=== PATIENT | female | born 1980 | race Caucasian/White ===

== ENCOUNTER 2020-03-13 18:25 | Outpatient (CLI) | payer BC, OTHER, SELFPAY ==
[2020-03-13 19:09] LABS: NT Pro B Type Natriuretic Pept 36 pg/mL (0-125)
== END 2020-03-13 18:26 | disposition home or self-care (01) ==
PROVIDERS: Visit Provider Nurse Practitioner Family
DX: R60.9 Edema, unspecified (principal)
CPT/HCPCS: 83880

== ENCOUNTER 2020-11-10 12:59 | Emergency (ER) | payer SELFPAY ==
[2020-11-10] VITALS (12 sets, daily range): BP systolic 140–160; BP diastolic 51–92; PULSE 95–112; RESP 14–20; TEMP 36.2–37.1; O2SAT 96–100; BMI 27.6
--- NOTE | 2020-11-10 13:37 | ED_ITS ---
HPI - Female Genitourinary General: Chief complaint: Vaginal Bleeding Stated complaint: CONSISTANT BLEEDING 2 MONTHS Time Seen by Provider: 11/10/20 13:37 History of Present Illness: Associated symptoms: Deny abdominal pain, headache(s) or nausea Review of Systems Const: Denies: fever(s), chills or fatigue Eyes: Denies: change in vision or eye discomfort ENMT: Denies: throat pain, odynophagia, nasal discharge or nasal congestion Card: Denies: chest pain, palpitations, edema, swelling of feet/ankles, dyspnea on exertion or orthopnea Resp: Denies: dyspnea, productive cough or non-productive cough GI: Denies: abdominal pain, nausea, vomiting, diarrhea, constipation or he matochezia : Denies: flank pain, dysuria or hematuria Musc: Denies: neck pain, back pain or extremity swelling Skin/Breast: Denies: rash or new lesions Neuro: Denies: headache(s), numbness in extremities or weakness in extremities PFSH ED PFSH: Medical History Elevated BP without diagnosis of hypertension Performance anxiety Sebaceous cyst Family History Other Hypertension Thyroid disease Social History Smoking and tobacco status: current every day smoker cigarettes Packs smoked per day: 0.5 Second hand smoke exposure: Yes Alcohol intake: never Current occupational status: employed Physical Exam Const: COMMON NORMALS: patient oriented x3 HENMT: COMMON NORMALS: normocephalic HEAD & SCALP: normocephalic MOUTH: Normal oral and palatal mucosa present THROAT: posterior oropharynx normal and uvula midline Neck/C-Spine: COMMON NORMALS: supple GENERAL: Yes normal visual inspection Resp: COMMON NORMALS: normal respiratory effort, No retractions, No use of accessory muscles and clear to auscultation bilaterally AUSCULTATION: clear to auscultation bilaterally Cardio: COMMON NORMALS: regular rate, regular rhythm, S1 normal heart sound present, S2 normal heart sound present, No gallops present (Cardio), No clicks present (Cardio), No murmurs present (Cardio) and Peripheral pulses 2+ throughout RATE: regular rate RHYTHM: regular rhythm HEART SOUNDS: S1 normal heart sound present and S2 normal heart sound present PERIPHERAL PULSES: Peripheral pulses 2+ throughout GI: COMMON NORMALS: Normal to inspection, nondistended, normoactive bowel sounds present, Soft to palpation, non-tender and no masses PALPATION: Yes Soft to palpation : COMMON NORMALS: Yes no CVA tenderness BLADDER/KIDNEY EXAM: Yes no CVA tenderness Back/Pelvis: COMMON NORMALS: no CVA tenderness Neuro: COMMON NORMALS: patient oriented x3 and moves all extremities Course Vital Signs: Vital signs: Vital Signs Temperature 97.1 F L 11/10/20 13:28 Pulse Rate 112 H 11/10/20 13:28 Respiratory Rate 14 11/10/20 13:28 Blood Pressure 159/86 11/10/20 13:28 Pulse Oximetry 100 11/10/20 13:28 Discharge Plan Discharge Condition: Good Prescriptions: No Action clindamycin HCl 300 mg capsule 300 mg PO BID 7 Days Qty: 14 RF: 0 Coding Level of Care Code ED [employer] Worker for Abigail Mercedes
--- NOTE | 2020-11-10 15:38 | PC.NURSE ---
Stated started bleeding since 09/20/20, uses 6-8 pads a day. Now, having SOB, weakness, and tired.
--- NOTE | 2020-11-10 16:08 | W.ED.FEMALGU ---
HPI - Female Genitourinary General: Chief complaint: Vaginal Bleeding Stated complaint: CONSISTANT BLEEDING 2 MONTHS Time Seen by Provider: 11/10/20 13:37 Source: patient Mode of arrival: ambulatory Limitations: no limitations History of Present Illness: HPI Narrative: 40-year-old female presenting with dizziness, shortness of breath, fatigue, and abnormal vaginal bleeding for the last 2 months. States that she frequently has passed large clots, bleeding intensity waxes and wanes throughout the day, but she has been bleeding every single day for the last 2 months. Denies any pain, abnormal discharge. No abdominal swelling or bloating. Her last Pap smear was over 10 years ago. No other abnormal bleeding or bruising. She is not on any blood thinners. No history of any bleeding disorders. She complains of headaches, cold intolerance, fatigue, dyspnea on exertion, and frequent dizziness, all with gradual onset over the past 2 months. No dysuria. Associated symptoms: Reports headache(s) Review of Systems General: Reports: 10 or more systems reviewed and unremarkable except in HPI and below Const: Reports: chills, body aches, fatigue, malaise and daytime sleepiness; Denies: fever(s), night sweats or diaphoresis Eyes: Denies: blurry vision, blind spots, eye discharge or eye redness ENMT: Denies: odynophagia, nasal congestion or nasal obstruction Card: Reports: palpitations, edema, swelling of feet/ankles, lightheadedness, pre-syncope, dyspnea on exertion and leg pain with exertion; Denies: irregular heart rhythm : Denies: flank pain, difficulty voiding, dysuria, urinary frequency or urinary urgency Musc: Reports: extremity swelling Skin/Breast: Denies: rash, pruritus, erythema, photosensitivity or skin pain Neuro: Reports: headache(s), weakness in extremities and dizziness Endo: Reports: cold intolerance; Denies: polyuria, polydipsia or tired all the time Glenn/Lymph: Denies: easy bruising, easy bleeding, petechiae, purpura or enlarged lymph nodes PFS ED PFSH: Medical History (Updated 11/10/20 @ 18:37 by Manisha Padilla MD) Elevated BP without diagnosis of hypertension Performance anxiety Sebaceous cyst Family History Other Hypertension Thyroid disease Social History Smoking and tobacco status: current every day smoker cigarettes Packs smoked per day: 0.5 Second hand smoke exposure: Yes Alcohol intake: never Current occupational status: employed Physical Exam Const: COMMON NORMALS: no acute distress, patient oriented x3, alert and well nourished GENERAL APPEARANCE: cooperative, comfortable and anxious; not in distress, not lethargic and not ill appearing ORIENTATION/CONSCIOUSNESS: not lethargic HENMT: COMMON NORMALS: normocephalic and atraumatic HEAD & SCALP: normal to inspection, normocephalic and atraumatic FACE & SINUS: normal facial exam and face symmetric MOUTH: Abnormal oral and palatal mucosa present TEETH & GINGIVA: Yes gingiva abnormal pallid Eye: COMMON NORMALS: Equal, round and reactive pupils present CONJUNCTIVA: Yes conjunctival abnormal positive bilateral pallor PUPIL: Yes Equal, round and reactive pupils present Chest: COMMONS NORMALS: normal inspection of the chest and normal palpation of entire chest wall Resp: COMMON NORMALS: normal respiratory effort; negative for No use of accessory muscles EFFORT & INSPECTION: No tachypneic, No respiratory distress, No labored, No Actively coughing and No retractions Cardio: COMMON NORMALS: regular rhythm, S1 normal heart sound present and S2 normal heart sound present RATE: tachycardic RHYTHM: regular rhythm HEART SOUNDS: S1 normal heart sound present and S2 normal heart sound present GI: COMMON NORMALS: Normal to inspection, nondistended, normoactive bowel sounds present, Soft to palpation, non-tender, No hepatosplenomegaly present and no masses PALPATION: Yes Soft to palpation and Yes No hepatosplenomegaly present : EXTERNAL FEMALE EXAM: No externally tender, No external swelling, No lesion, No laceration and No External ecchymosis (female) SPECULUM EXAM - VAGINA: No foreign body, No laceration, No lesion, Yes vaginal bleeding Amount: small/minimal, No tissue present in vagina, No mass, No tenderness, No Vaginal discharge present and No Vaginal ecchymosis SPECULUM EXAM - CERVIX: Yes Cervical os closed, No Tissue present in the cervical os, No Cervical bleeding, No Abnormal cervical discharge present, No Cervical lesion present, No Cervical mass present, No Cervical laceration present, No Nabothian cyst present and No Cervical tenderness present BIMANUAL EXAM - VAGINA & UTERUS: No Cervical tenderness present BIMANUAL EXAM - ADNEXA, OTHER: Yes normal adnexae OB/EXTERNAL & SPECULUM: no foreign bodies and no tissue noted in vagina Extremity: GENERAL: Yes edema (Lower extremities 1+ pitting edema) and Yes pallor Neuro: COMMON NORMALS: patient oriented x3, CN's II-XII intact bilaterally, moves all extremities and no focal motor deficits SENSORIUM/ORIENTATION: Yes alert and No lethargic SPEECH: speech normal GAIT: Yes Normal gait present Skin: COMMON NORMALS: no rashes or lesions noted, turgor normal, no jaundice and no mottling GENERAL SKIN EXAM: no rashes or lesions noted, turgor normal, no ecchymo, no jaundice, no mottling, no petechiae, no purpura and pallor RASHES: rashes noted (Mild erythema bilateral lower ankles associated with edema) Course Vital Signs: Vital signs: Vital Signs Temperature 98.5 F 11/10/20 17:48 Pulse Rate 99 11/10/20 17:48 Respiratory Rate 18 11/10/20 17:48 Blood Pressure 156/92 11/10/20 17:48 Pulse Oximetry 100 11/10/20 17:48 MDM - Female MDM Narrative: Medical decision making narrative: 40-year-old female with abnormal uterine bleeding for the last 2 months. Hemoglobin 5.6, tachycardic but with stable blood pressure Proceed with PRBC transfusion, 2 units TXA 1000 mg IV x1 Normal-appearing vagina and cervix on pelvic exam. Ultrasound demonstrates 14 mm endometrial stripe, normal-appearing uterus and adnexa. Discussed the case with Dr. Bolanos, EMERGENCY ROOM DOCTOR on-call, he agrees with plan to discharge on oral TXA after she is received her blood transfusions as long as she is not having active heavy bleeding at that time, and that she can follow-up in clinic next week. Differential diagnosis; coagulopathy, vaginal or cervical laceration, cervical neoplasm, endometrial neoplasm, fibroid uterus, Medical Records: Attestation: I reviewed the patient's medical records. Lab Data: Attestation: I reviewed the patient's lab results. Labs: Lab Results 11/10/20 11/10/20 11/10/20 Range/Units 15:52 15:52 15:52 WBC 6.4 (4.0-10.0) 10^3/ uL RBC 2.37 L (4.1-5.3) 10^6/u L Hgb 5.6 L* (11.5-15.3) g/dL Hct 20.3 L* (37.0-47.0) % MCV 85.7 (81-99) fL MCH 23.6 L (28.0-34.0) pg MCHC 27.6 L (30.0-36.0) g/dL RDW 19.3 H (12.1-15.1) % Plt Count 519 H (130-400) 10^3/c mm MPV 8.1 (7.4-10.4) fL Neut % (Auto) 66.5 % Lymph % (Auto) 22.4 % [place] % (Auto) 8.3 % Eos % (Auto) 1.9 % Baso % (Auto) 0.6 % Neut # (Auto) 4.22 (1.8-7.7) 10^3/u L Lymph # (Auto) 1.4 (0.8-4.8) 10^3/u L [place] # (Auto) 0.5 (0.2-0.9) 10^3/u L Eos # (Auto) 0.1 (0.0-0.8) 10^3/u L Baso # (Auto) 0.0 (0.0-0.1) 10^3/u L Nucleated RBC % (a uto) 0 % Nucleated RBCs # 0.0 /100WBC PT (12.1-14.9) SECO NDS INR (0.8-1.2) Sodium 137 (136-145) mmol/L Potassium 4.0 (3.5-5.1) mmol/L Chloride 103 (98-107) mmol/L Carbon Dioxide 24 (22-29) mmol/L Anion Gap 14.0 (5-19) BUN 11 (6-20) mg/dL Creatinine 0.8 (0.5-0.9) mg/dL GFR Calculation 79.0 L (90-130) mL/min Glucose 102 (65-115) mg/dL Calculated Osmolal ity 284 L (285-295) mOsm/k g Calcium 9.0 (8.5-10.5) mg/dL Total Bilirubin 0.2 (0.15-1.2) mg/dL AST 28 (0-32) U/L ALT 30 (0-33) U/L Alkaline Phosphata se 60 (35-105) IU/L Total Protein 6.7 (6.6-8.7) g/dL Albumin 4.2 (3.5-5.2) g/dL Globulin 2.5 (1.3-4.6) g/dL Ser , Joao i-Qnt 0.50 mIU/mL Blood Type O Positive Rho(D) Type Positive Antibody Screen Negative Crossmatch See Detail 11/10/20 Range/Units 15:52 WBC (4.0-10.0) 10^3/ uL RBC (4.1-5.3) 10^6/u L Hgb (11.5-15.3) g/dL Hct (37.0-47.0) % MCV (81-99) fL MCH (28.0-34.0) pg MCHC (30.0-36.0) g/dL RDW (12.1-15.1) % Plt Count (130-400) 10^3/c mm MPV (7.4-10.4) fL Neut % (Auto) % Lymph % (Auto) % [place] % (Auto) % Eos % (Auto) % Baso % (Auto) % Neut # (Auto) (1.8-7.7) 10^3/u L Lymph # (Auto) (0.8-4.8) 10^3/u L [place] # (Auto) (0.2-0.9) 10^3/u L Eos # (Auto) (0.0-0.8) 10^3/u L Baso # (Auto) (0.0-0.1) 10^3/u L Nucleated RBC % (a uto) % Nucleated RBCs # /100WBC PT 13.80 (12.1-14.9) SECO NDS INR 1.03 (0.8-1.2) Sodium (136-145) mmol/L Potassium (3.5-5.1) mmol/L Chloride (98-107) mmol/L Carbon Dioxide (22-29) mmol/L Anion Gap (5-19) BUN (6-20) mg/dL Creatinine (0.5-0.9) mg/dL GFR Calculation (90-130) mL/min Glucose (65-115) mg/dL Calculated Osmolal ity (285-295) mOsm/k g Calcium (8.5-10.5) mg/dL Total Bilirubin (0.15-1.2) mg/dL AST (0-32) U/L ALT (0-33) U/L Alkaline Phosphata se (35-105) IU/L Total Protein (6.6-8.7) g/dL Albumin (3.5-5.2) g/dL Globulin (1.3-4.6) g/dL Ser , Joao i-Qnt mIU/mL Blood Type Rho(D) Type Antibody Screen Crossmatch Discharge Plan Discharge Patient Disposition: Home Clinical Impression: Menometrorrhagia, Dysfunctional uterine bleeding, Anemia requiring transfusions Condition: Stable Prescriptions: New tranexamic acid 650 mg tablet 1,300 mg PO Q8H 5 Days Qty: 30 RF: 0 No Action No Known Home Medications RF: 0 Discharge Orders: Discharge ED (Routine); Ordered 11/10/20 Ordered By: Manisha Padilla Referrals: Tino Bolanos MD [Physician] - 1-3 days (ER followup: AUB requiring transfusion) Discharge Diet: Usual diet Discharge Activity: Increase activity as tolerated Patient Instructions: Blood Transfusion Reactions (ED), Abnormal Uterine Bleeding Activity Restrictions/Additional Instructions: You have been referred to the EMERGENCY ROOM DOCTOR clinic, Dr. Bolanos. Call the clinic number tomorrow morning to request a follow-up appointment early next week. Start taking [id number] iron supplement. Return immediately to the ER if you continue to have heavy bleeding, if you feel faint, dizzy, develop a fever or difficulty breathing, chest pain,palpitations, or any other concerning symptoms. Coding Level of Care Code ED Kitchen Hand for Chg Fwd Exam Comprehensive
[2020-11-10 16:09] LABS: Basophils % 0.6 %; Eosinophils # 0.1 10^3/uL (0.0-0.8); Eosinophils % 1.9 %; Lymphocytes # 1.4 10^3/uL (0.8-4.8); Lymphocytes % 22.4 %; Mean Corpuscular HGB Conc 27.6 g/dL (30.0-36.0); Mean Corpuscular Hemoglobin 23.6 pg (28.0-34.0); Mean Corpuscular Volume 85.7 fL (81-99); Mean Platelet Volume 8.1 fL (7.4-10.4); Monocytes # 0.5 10^3/uL (0.2-0.9); Monocytes % 8.3 %; Neutrophils # 4.22 10^3/uL (1.8-7.7); Neutrophils % 66.5 %; Nucleated Red Blood Cells % 0 %; Platelet Count 519 10^3/cmm (130-400); Red Blood Count 2.37 10^6/uL (4.1-5.3); Red Cell Distribution Width 19.3 % (12.1-15.1); White Blood Count 6.4 10^3/uL (4.0-10.0)
[2020-11-10 16:16] LABS: Hematocrit 20.3 % (37.0-47.0); Hemoglobin 5.6 g/dL (11.5-15.3)
[2020-11-10 16:39] LABS: Alanine Aminotransferase 30 U/L (0-33); Albumin Level 4.2 g/dL (3.5-5.2); Alkaline Phosphatase 60 IU/L (35-105); Aspartate Amino Transferase 28 U/L (0-32); Blood Urea Nitrogen 11 mg/dL (6-20); Carbon Dioxide 24 mmol/L (22-29); Chloride 103 mmol/L (98-107); Globulin 2.5 g/dL (1.3-4.6); Glucose 102 mg/dL (65-115); Osmolality Calculated 284 mOsm/kg (285-295); Sodium 137 mmol/L (136-145); Total Bilirubin 0.2 mg/dL (0.15-1.2); Total Protein 6.7 g/dL (6.6-8.7)
--- NOTE | 2020-11-10 17:02 | USR_ITS ---
PROCEDURE INFORMATION: Exam: US Pelvis, Transvaginal Exam date and time: 11/10/2020 5:03 PM Age: 40 years old Clinical indication: Menstruation abnormalities; Excessive menstruation; Additional info: Abnormal uterine bleeding TECHNIQUE: Imaging protocol: Real-time transvaginal pelvic ultrasound with image documentation. Transvaginal imaging was used for better evaluation of the endometrium, adnexa, and/or cervix. COMPARISON: No relevant prior studies available. FINDINGS: Uterus/cervix: Uterus is normal in echogenicity and measures 9.2 x 4.5 x 5.1 cm. Endometrial stripe is 14 mm thick. There is a nabothian cyst in the cervix. Right adnexa: Right ovary is not visualized. Left adnexa: Left ovary measures 3.1 x 2.1 x 2.6 cm. There is a 1.8 x 1.8 x 1.9 cm dominant follicle in left ovary. Intraperitoneal space: No free fluid. US/US pelvic with transvaginal IMPRESSION: No abnormality seen. Right ovary is not visualized.
--- NOTE | 2020-11-10 17:42 | PC.NURSE ---
Blood transfusion began
--- NOTE | 2020-11-10 18:03 | PC.NURSE ---
Blood tranfusing , no acute distress
[2020-11-10 18:08] LABS: INR 1.03 (0.8-1.2)
--- NOTE | 2020-11-10 18:17 | PC.NURSE ---
Resting with lights off. no acute distress.
[2020-11-10] MEDS: FUROsemide 10 mg/mL SDV 2mL 20 MG IVP (18:53)
[2020-11-10] MEDS: acetaminophen 325 mg Tablet 650 MG PO (20:09)
[2020-11-10] MEDS: diphenhydrAMINE 25 mg Capsule 12.5 MG PO (20:13)
== END 2020-11-10 21:29 | disposition home or self-care (01) ==
PROVIDERS: Physician Assistant; Emergency Provider Family Medicine
DX: N92.1 Excessive and frequent menstruation with irregular cycle (principal); N93.8 Other specified abnormal uterine and vaginal bleeding; D64.9 Anemia, unspecified; F17.210 Nicotine dependence, cigarettes, uncomplicated
CPT/HCPCS: 12345; 36430; 76830; 76856; 80053; 84702; 85025; 85610; 86850; 86900; 86920; 96365; 96366; 96375; 99283; 99284; J1940; P9016

== ENCOUNTER → 2020-11-12 08:50 | Outpatient (BNVA) | payer SELFPAY | PROVIDERS: PCP Family Medicine Adult Medicine; Visit Provider Obstetrics & Gynecology | DX: D64.9 Anemia, unspecified (principal); N92.1 Excessive and frequent menstruation with irregular cycle; N93.8 Other specified abnormal uterine and vaginal bleeding; Z12.4 Encounter for screening for malignant neoplasm of cervix | CPT/HCPCS: 83001; 84146; 84443; 84702; 85025; 88175 ==